=== PATIENT | female | born 1935 | race Caucasian/White ===

== ENCOUNTER 2017-09-12 07:57 | Inpatient (IN) | payer OTHER ==
[2017-09-12] MEDS: DEXAMETHASONE 1 MG TAB PO (09:07)
[2017-09-12] MEDS: GABAPENTIN 300 MG CAP PO (09:07)
[2017-09-12] MEDS: VANCOMYCIN 1 GM (PMX) 250 ML IVPB (09:07)
[2017-09-12] MEDS ORDERED: BUPIVACAINE 0.5% (SDV) 30 ML, morphine SULFATE (PF) 8 MG, EPINEPHrine 0.3 MG, KETOROLAC... IRR (09:45)
[2017-09-12] MEDS ORDERED: TRANEXAMIC ACID 1,000 MG in DEXTROSE 5% 100 ML IVPB (09:45)
[2017-09-12] MEDS ORDERED: MIDAZOLAM 1 MG/ML 2 ML INJ (10:55)
[2017-09-12] MEDS ORDERED: PROPOFOL 20 ML (10:55)
[2017-09-12] MEDS ORDERED: LIDOCAINE 2% (SDV) 5 ML INJ (10:55)
[2017-09-12] MEDS ORDERED: ROPIVACAINE 0.5 % 30 ML VIAL (10:57)
[2017-09-12] MEDS ORDERED: FENTAnyl 50 MCG/ML VIAL (11:10)
[2017-09-12] MEDS ORDERED: POLYMYXIN/BACITRACIN 1L IRRIG (11:19)
[2017-09-12] MEDS ORDERED: THROMBIN 5000 UNIT VIAL (11:19)
[2017-09-12] MEDS ORDERED: CA CHLORIDE 10% 10 ML SYRINGE (11:19)
[2017-09-12] MEDS: CA CHLORIDE (GM) 10% 10 ML INJ IV (11:39)
[2017-09-12] MEDS: POLYMYXIN/BACITRACIN 1L IRRIG IRR (11:40)
[2017-09-12] MEDS: THROMBIN 5000 UNIT VIAL TOP (11:41)
[2017-09-12] MEDS ORDERED: ONDANSETRON 4 MG INJ (11:42)
[2017-09-12] MEDS ORDERED: FAMOTIDINE 20 MG INJ (11:42)
[2017-09-12] MEDS ORDERED: ACETAMINOPHEN 1000MG/100ML IV 100 ML (11:46)
[2017-09-12] MEDS: BUPIVACAINE 0.5%/EPI (SDV) 30 ML INJ INJ (11:51)
[2017-09-12] MEDS ORDERED: SUCCINYLCHOLINE CHLORIDE 100 MG/5 ML SYG IV (11:57)
[2017-09-12] MEDS ORDERED: MEPERIDINE 25 MG INJ IV (12:00)
[2017-09-12] MEDS ORDERED: DIPHENHYDRAMINE 50 MG INJ IV ×2 (12:00→13:00)
[2017-09-12] MEDS ORDERED: HYDROmorphONE (0.2 MG/ML) 10ML SYG IV (12:00)
[2017-09-12] MEDS ORDERED: ONDANSETRON 4 MG INJ IV ×2 (12:00→13:00)
[2017-09-12] MEDS ORDERED: PROCHLORPERAZINE 10 MG INJ IV (12:00)
[2017-09-12] MEDS ORDERED: FENTAnyl 50 MCG/ML VIAL IV (12:00)
[2017-09-12] MEDS ORDERED: morphine 2 MG INJ IV ×2 (13:00)
[2017-09-12] MEDS ORDERED: OXYCODONE/ACETAMINOPHEN (5/325) TAB PO (13:00)
[2017-09-12] MEDS ORDERED: MAGNESIUM HYDROXIDE 30ML CUP PO (13:00)
[2017-09-12] MEDS ORDERED: KETOROLAC 15 MG INJ IV (13:00)
[2017-09-12] MEDS ORDERED: ACETAMINOPHEN 500 MG TAB PO (13:00)
[2017-09-12] MEDS ORDERED: ZOLPIDEM 5 MG TAB PO (13:00)
[2017-09-12] MEDS ORDERED: TRANEXAMIC ACID 1,000 MG in DEXTROSE 5% 100 ML IV (13:00)
[2017-09-12] MEDS: TRANEXAMIC ACID 1,000 MG in DEXTROSE 5% 100 ML IV (13:33)
[2017-09-12] MEDS: metFORMIN 500 MG TAB PO (17:43)
[2017-09-12] MEDS: DEXAMETHASONE 2 MG TAB PO ×2 (17:43→23:03)
[2017-09-12] MEDS: SENNA/DOCUSATE NA (8.6MG/50MG) TAB PO (20:43)
[2017-09-12] MEDS: VANCOMYCIN 500MG/NS (PMX) 100 ML IVPB (20:43)
[2017-09-13] MEDS: DEXAMETHASONE 2 MG TAB PO ×2 (06:02→12:14)
[2017-09-13] MEDS: LEVOTHYROXINE 125 MCG TAB PO (06:02)
[2017-09-13] MEDS: metFORMIN 500 MG TAB PO ×2 (08:32→11:40)
[2017-09-13] MEDS: VANCOMYCIN 500MG/NS (PMX) 100 ML IVPB (08:32)
[2017-09-13] MEDS: SENNA/DOCUSATE NA (8.6MG/50MG) TAB PO (08:32)
[2017-09-13] MEDS: ASPIRIN 81 MG TAB PO (08:32)
[2017-09-13] MEDS: METOPROLOL (XL) 50 MG TAB PO (09:00)
[2017-09-13] MEDS ORDERED: NON-FORMULARY/PATIENT OWN MED (Canagliflozin (Invokana) 100 MG) PO (09:00)
[2017-09-13] MEDS: OXYCODONE/ACETAMINOPHEN (5/325) TAB PO (12:14)
[2017-09-25] MEDS ORDERED: EVOLOCUMAB 140 MG XX (09:00)
== END 2017-09-13 12:10 | disposition home or self-care (01) | DRG 483 ==
LOC: REC 07:57 → MS1 14:25
PROVIDERS: Orthopaedic Surgery
PROC: 0RRJ00Z Replacement of Right Shoulder Joint with Reverse Ball and Socket Synthetic Substitute, Open Approach (ICD-10-PCS; principal; 2017-09-12 09:30)
PROC: 0PB90ZZ Excision of Right Clavicle, Open Approach (ICD-10-PCS; 2017-09-12 09:30)
DX: M19.211 Secondary osteoarthritis, right shoulder (principal); I11.0 Hypertensive heart disease with heart failure; I50.32 Chronic diastolic (congestive) heart failure; E11.42 Type 2 diabetes mellitus with diabetic polyneuropathy; Z68.41 Body mass index [BMI] 40.0-44.9, adult; M75.101 Unspecified rotator cuff tear or rupture of right shoulder, not specified as traumatic; E03.9 Hypothyroidism, unspecified; E66.9 Obesity, unspecified; G47.33 Obstructive sleep apnea (adult) (pediatric); Z96.651 Presence of right artificial knee joint; Z79.84 Long term (current) use of oral hypoglycemic drugs
CPT/HCPCS: 73030-RT; 82962; 86999; 88304; 88311; 97165